=== PATIENT | male | born 1980 ===

== ENCOUNTER → 2020-06-17 | Emergency (ER) | payer SELFPAY ==
[~2020-06-17] VITALS: Ht 167.6 cm; Wt 65.9 kg
[2020-06-17 21:19] VITALS: BP 113/78
== END | disposition left against medical advice (07) ==
LOC: ER 21:09
DX: R06.02 Shortness of breath (principal); Z53.21 Procedure and treatment not carried out due to patient leaving prior to being seen by health care provider
CPT/HCPCS: 93005

== ENCOUNTER 2020-09-29 22:44 | Emergency (ER) | payer SELFPAY ==
[~2020-09-29] VITALS: Ht 167.6 cm; Wt 68.2 kg
[2020-09-29 22:55] VITALS: BP 130/84
[2020-09-29] MEDS ORDERED: PRED20TA PO (23:24)
[2020-09-29] MEDS ORDERED: PENI250T2 PO (23:24)
[2020-09-29] MEDS ORDERED: LIDO20SO16 PO (23:25)
== END 2020-09-29 23:37 | disposition home or self-care (01) ==
LOC: ER 22:45
DX: K08.89 Other specified disorders of teeth and supporting structures (principal)
CPT/HCPCS: 99283